=== PATIENT | female | born 1970 | race Caucasian/White ===

== ENCOUNTER 2021-05-25 12:12 | Outpatient (CLI) | payer SELFPAY ==
[~2021-05-25] VITALS: Ht 167.7 cm; Wt 118.1 kg
[2021-05-25 12:17] VITALS: BP 108/77
[2021-05-25] MEDS ORDERED: CASIRIVIMAB/IMDEVIMAB 1,200 MG in NS (IVPB) 250 ML IV ONE (12:30)
[2021-05-25] MEDS ORDERED: ONDANSETRON 4 MG/2 ML (SDV) Z0FRAN IV PRN (12:30)
[2021-05-25] MEDS ORDERED: ACETAMINOPHEN 500 MG TAB (TYLENOL) PO PRN (12:30)
[2021-05-25] MEDS ORDERED: EPINEPHrine INJECTION 1 MG/ML AMP IM PRN (12:30)
[2021-05-25] MEDS ORDERED: diphenhydrAMINE 50 MG/ML INJ (BENADRYL) IV PRN (12:30)
[2021-05-25 13:54] VITALS: BP 121/78
== END 2021-05-25 14:18 | disposition home or self-care (01) ==
LOC: INFUSION 12:12
PROVIDERS: ATTEND Physician Assistant
DX: U07.1 COVID-19 (principal)